=== PATIENT | male | born 1940 | race Caucasian/White ===

== ENCOUNTER 2017-01-26 06:44 | Day surgery (SDC) | payer OTHER, MEDICARE ==
[~2017-01-26 06:44] MED LIST: LIDOCAINE W/ SODIUM BICARB 0.5 ML SYR ONE; Lactated Ringers 1,000 ML PRIMARY IV ONE
[2017-01-26] MEDS ORDERED: MIDAZOLAM 5 MG/1 ML IVP ONE (06:45)
[2017-01-26] MEDS ORDERED: fentaNYL Inj 100 MCG/2 ML VIAL IVP ONE (06:45)
[2017-01-26 07:32] VITALS: RESP 16
[2017-01-26 10:01] VITALS: TEMP 96.9
== END 2017-01-26 09:52 | disposition home or self-care (01) ==
LOC: SDSC 06:44
PROVIDERS: ATTEND Ophthalmology
DX: H25.11 Age-related nuclear cataract, right eye (principal)
CPT/HCPCS: 66984; J3010; J2250; J7120